=== PATIENT | female | born 1970 | race Caucasian/White ===

== ENCOUNTER 2022-05-25 17:06 | Outpatient (CLI) | payer MEDICARE, MEDICAID, SELFPAY | END 2022-05-25 17:07 | disposition home or self-care (01) | LOC: AMB 06-02 15:20 | PROVIDERS: Visit Provider Emergency Medicine Emergency Medical Services | DX: R10.9 Unspecified abdominal pain (principal); M54.50 Low back pain, unspecified | CPT/HCPCS: A0425; A0433 ==

== ENCOUNTER 2022-05-25 17:43 | Emergency (ER) | payer MEDICARE, MEDICAID, SELFPAY ==
[2022-05-25 17:48] VITALS: BP 146/81; PULSE 58; TEMP 36.2; O2SAT 97; BMI 39.5
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
[2022-05-25 18:36] LABS: Basophils Absolute Auto 0.02 K/uL (0.00-0.30); Basophils Percent Auto 0.2 % (0.0-3.0); Eosinophils Absolute Auto 0.13 K/uL (0.00-0.50); Eosinophils Percent Auto 1.5 % (0.0-7.0); Hematocrit 39.4 % (33.0-51.0); Hemoglobin* 12.6 gm/dL (12.0-16.0); Immature Granulocytes Abs Auto 0.01 K/uL (0.00-0.30); Lymphocytes Absolute Auto 2.29 K/uL (0.90-2.90); Lymphocytes Percent Auto 26.5 % (20-44); Mean Corpuscular HGB Conc 32 gm/dL (32-36); Mean Corpuscular Hemoglobin 29 pg (26-34); Mean Corpuscular Volume 91 fL (80-100); Monocytes Percent Auto 5.9 % (0.0-11.0); Neutrophils Absolute Auto 5.67 K/uL (1.7-7.0); Neutrophils Percent Auto 65.8 % (42.0-72.0); Platelet Count* 320 K/uL (140-440); RDW Coefficient of Variation % 13.2 % (11.5-15.5); Red Blood Count 4.32 m/uL (4.00-5.20); White Blood Count* 8.63 K/uL (4.50-11.00)
[2022-05-25 18:41] LABS: Slide Review Reflex No
[2022-05-25] MEDS: MORPHINE 10 MG/ML inj IM (18:45)
[2022-05-25] MEDS: predniSONE 10 MG TABLET 50 MG PO (18:45)
[2022-05-25 18:49] LABS: Appearance Urine Slightly Cloudy (Clear); Bilirubin Urine Negative (Negative); Blood Urine Negative (Negative); Color Urine Yellow (Yellow); Glucose Urine Negative (Negative); Ketones Urine Negative (Negative); Leukocyte Esterase Urine Negative (Negative); Nitrite Urine Negative (Negative); Protein Urine Negative (Negative); Specific Gravity Urine 1.025 (1.000-1.030); Urobilinogen Urine 0.2 (0.2-1.0)
[2022-05-25 19:05] LABS: Chloride* 106 mmol/L (96-114); Potassium* 3.9 mmol/L (3.6-5.1); Sodium* 137 mmol/L (135-149)
[2022-05-25 19:08] LABS: Blood Urea Nitrogen* 13 mg/dL (5-24); Carbon Dioxide* 27 mmol/L (20-32); Creatinine* 0.9 mg/dL (0.5-1.5); Est. Creatinine Clearance* 65.29; Estimated Glomerular Filt Rate 78.37
[2022-05-25 19:09] LABS: Calcium* 9.3 mg/dL (8.4-10.6); Glucose* 113 mg/dL (60-115)
[2022-05-25 19:09] LABS: RBC Urine 0-2 (0-2)
[2022-05-25 19:10] LABS: Bacteria Urine Moderate; Squamous Epithelial Cell Urine Moderate (None-Few)
[2022-05-25 19:11] LABS: Mucus Urine Few
[2022-05-25 19:11] LABS: C Reactive Protein* 3.8 mg/dL (0.5-1.0)
[2022-05-25 19:25] VITALS: PULSE 82; RESP 18; O2SAT 94
== END 2022-05-25 19:30 ==
LOC: ED 18:43
PROVIDERS: Emergency Provider Family Medicine; PCP Physician Assistant Medical
DX: M54.16 Radiculopathy, lumbar region (principal)
CPT/HCPCS: 96372; 36415; 80048; 81001; 85025; 86140; 87086; 99283; 99284; J2270; J7512

== ENCOUNTER 2022-06-01 07:56 | Outpatient (CLI) | payer MEDICARE, MEDICAID, SELFPAY | END 2022-06-01 07:57 | disposition home or self-care (01) | LOC: AMB 06-08 15:54 | PROVIDERS: Visit Provider Family Medicine | DX: M54.9 Dorsalgia, unspecified (principal); M25.551 Pain in right hip; M25.552 Pain in left hip; R20.0 Anesthesia of skin | CPT/HCPCS: A0425; A0429 ==